=== PATIENT | male | born 1970 | race African-American/Black ===

== ENCOUNTER 2020-03-19 08:45 | Inpatient (IN) | payer MEDICAID, OTHER ==
[~2020-03-19] VITALS: Ht 175.3 cm; Wt 60.0 kg
[2020-03-19] VITALS (40 sets, daily range): BP systolic 53–132; BP diastolic 17–94
[~2020-03-19 08:45] MED LIST: INSU100I28 SQ; INSU100V3 SUBCUT
[2020-03-19] MEDS ORDERED: SODIUM CHLORIDE 0.9% 1,000 ML IV ONE ×2 (09:00→11:30)
[2020-03-19 09:43] LABS: HEMATOCRIT. 48.8 % (42.0-52.0); HEMOGLOBIN. 14.1 g/dL (14.0-18.0); MEAN PLATELET VOLUME 9.4 fl (7.4-10.4); PLATELET 548 x1000/uL (130-400); RED BLOOD CELL COUNT 4.39 mill/uL (4.7-6.1); RED CELL DISTRIBUTION WIDTH 14.7 % (11.6-14.6)
[2020-03-19 09:49] LABS: CHLORIDE 81 mEq/L (98-107)
[2020-03-19] MEDS ORDERED: INSULIN REGULAR (DRIP) 100 UNITS in SODIUM CHLORIDE 0.9% 99 ML IV SCH (10:15)
[2020-03-19] MEDS ORDERED: INSULIN REGULAR (HUMULIN R) 300UNITS/3ML VIAL IV ONE (10:15)
[2020-03-19 10:23] LABS: PLATELET ESTIMATE INCREASED
[2020-03-19] MEDS ORDERED: MAGNESIUM 2 G PREMIX 50 ML IV ONE (11:00)
[2020-03-19 11:25] LABS: CLARITY URINE CLEAR (CLEAR); COLOR URINE YELLOW (YELLOW); KETONES URINE 2+ (NEGATIVE); LEUKOCYTE ESTERASE URINE NEGATIVE (NEGATIVE); NITRITE URINE NEGATIVE (NEGATIVE); OCCULT BLOOD URINE 1+ (NEGATIVE); PROTEIN URINE 1+ (NEGATIVE); UROBILINOGEN URINE 0.2 E.U./dL (0.2-1.0)
[2020-03-19] MEDS ORDERED: ACETAMINOPHEN 325MG TABLET PO PRN (12:30)
[2020-03-19] MEDS ORDERED: IPRATROPIUM/ALBUTEROL 0.5-3(2.5)MG/3ML NEB NEB PRN (12:30)
[2020-03-19] MEDS ORDERED: CLONIDINE 0.1MG TABLET PO PRN (12:30)
[2020-03-19] MEDS ORDERED: GUAIFENESIN 200MG/10ML SUGAR FREE UDC PO PRN (12:30)
[2020-03-19] MEDS ORDERED: ONDANSETRON HCL 4MG/2ML INJ IV PRN (12:30)
[2020-03-19] MEDS ORDERED: DEXTROSE 50% WATER 50ML SYRINGE IV PRN ×2 (12:30)
[2020-03-19] MEDS ORDERED: MAGNESIUM/ALUMINUM HYDROXIDE/SIMETHICONE 30ML UDC PO PRN (12:30)
[2020-03-19] MEDS ORDERED: DOCUSATE SODIUM 100MG CAPSULE PO PRN (12:30)
[2020-03-19] MEDS: BLOOD SUGAR DIAGNOSTIC STRIP TEST SCH ×10 (12:50→23:08)
[2020-03-19] MEDS: ENOXAPARIN 30MG/0.3ML SYR SUBCUT SCH (13:37)
[2020-03-19] MEDS: SODIUM CHLORIDE 0.9% 1,000 ML IV SCH ×2 (13:37→18:31)
[2020-03-19] MEDS: INSULIN REGULAR (DRIP) 100 UNITS in SODIUM CHLORIDE 0.9% 100 ML IV SCH ×2 (15:07→18:28)
[2020-03-19 17:04] LABS: PHOSPHORUS 6.9 mg/dL (2.5-4.9)
[2020-03-19 19:00] LABS: TOTAL IRON BINDING CAPACITY 163 ug/dL (250-450)
[2020-03-19 19:03] LABS: *AMPHETAMINES SCREEN URINE NEGATIVE (NEGATIVE); *BARBITURATES SCREEN URINE NEGATIVE (NEGATIVE); *BENZODIAZEPINES SCREEN URINE NEGATIVE (NEGATIVE); *COCAINE SCREEN URINE NEGATIVE (NEGATIVE)
[2020-03-19 19:04] LABS: CANNABINOID URINE SCREEN NEGATIVE (NEGATIVE); METHADONE URINE SCREEN NEGATIVE (NEGATIVE); OPIATES URINE SCREEN NEGATIVE (NEGATIVE); PHENCYCLIDINE URINE SCREEN NEGATIVE (NEGATIVE)
[2020-03-19 19:26] LABS: FOLIC ACID (FOLATE) SERUM >20 ng/mL ng/mL (>5.38)
[2020-03-19 19:37] LABS: VITAMIN B12 SERUM 1912 pg/mL (211-911)
[2020-03-19] MEDS ORDERED: ZOLPIDEM TARTRATE 5MG TABLET PO PRN (21:00)
[2020-03-19] MEDS: DEXT 5%/0.9% NACL 1,000 ML IV SCH (22:36)
[2020-03-19 23:05] LABS: PHOSPHORUS 2.1 mg/dL (2.5-4.9)
[2020-03-20] VITALS (34 sets, daily range): BP systolic 118–152; BP diastolic 72–90
[2020-03-20] MEDS ORDERED: POTASSIUM PHOS,M-BASIC-D-BASIC 15 MMOL in DEXT 5% WATER 245 ML IV NR (01:00)
[2020-03-20] MEDS: BLOOD SUGAR DIAGNOSTIC STRIP TEST SCH ×9 (01:01→20:55)
[2020-03-20 04:33] LABS: BASOPHILS % 0.7 % (0.0-2.0); HEMATOCRIT. 38.9 % (42.0-52.0); HEMOGLOBIN. 13.5 g/dL (14.0-18.0); LYMPHOCYTES % 8.5 % (20.0-50.0); MEAN CORPUSCULAR HEMOGLOBIN 32.2 pg (28.0-32.0); MEAN CORPUSCULAR VOLUME 92.8 fL (80.0-94.0); MEAN PLATELET VOLUME 8.1 fl (7.4-10.4); MONOCYTES % 6.7 % (2.0-8.0); NEUTROPHILS % 84.1 % (40.0-76.0); PLATELET 427 x1000/uL (130-400); RED BLOOD CELL COUNT 4.19 mill/uL (4.7-6.1); RED CELL DISTRIBUTION WIDTH 12.9 % (11.6-14.6)
[2020-03-20 04:42] LABS: CHLORIDE 120 mEq/L (98-107)
[2020-03-20] MEDS: DEXT 5%/0.9% NACL 1,000 ML IV SCH (05:24)
[2020-03-20] MEDS: PANTOPRAZOLE SODIUM 40 MG/VIAL IV SCH (08:59)
[2020-03-20] MEDS ORDERED: DEXTROSE 50% WATER 50ML SYRINGE IV PRN (10:45)
[2020-03-20] MEDS: SODIUM CHLORIDE 0.45% 1,000 ML IV SCH ×3 (11:58→23:22)
[2020-03-20] MEDS ORDERED: POTASSIUM PHOS,M-BASIC-D-BASIC 15 MMOL in DEXT 5% WATER 250 ML IV SCH (12:00)
[2020-03-20] MEDS: INSULIN LISPRO 100 UNITS/ML SUBCUT SCH ×5 (12:00→20:55)
[2020-03-20] MEDS: INSULIN GLARGINE UD 100 UNITS/ML SYR SUBCUT SCH (12:00)
[2020-03-20] MEDS: ENOXAPARIN 30MG/0.3ML SYR SUBCUT SCH (12:00)
[2020-03-20] MEDS: KETOROLAC 30MG/ML VIAL IV PRN ×2 (17:48→23:25)
[2020-03-21] VITALS (22 sets, daily range): BP systolic 100–148; BP diastolic 70–93
[2020-03-21] MEDS: ACETAMINOPHEN 325MG TABLET PO PRN ×2 (01:18→09:06)
[2020-03-21 05:28] LABS: BASOPHILS % 0.2 % (0.0-2.0); EOSINOPHILS % 0.9 % (0.0-5.0); HEMATOCRIT. 34.1 % (42.0-52.0); HEMOGLOBIN. 11.7 g/dL (14.0-18.0); LYMPHOCYTES % 23.2 % (20.0-50.0); MEAN CORPUSCULAR HEMOGLOBIN 31.8 pg (28.0-32.0); MEAN PLATELET VOLUME 8.1 fl (7.4-10.4); MONOCYTES % 3.1 % (2.0-8.0); NEUTROPHILS % 72.6 % (40.0-76.0); PLATELET 277 x1000/uL (130-400); RED BLOOD CELL COUNT 3.67 mill/uL (4.7-6.1)
[2020-03-21 05:43] LABS: CHLORIDE 115 mEq/L (98-107)
[2020-03-21 05:48] LABS: PHOSPHORUS 1.7 mg/dL (2.5-4.9)
[2020-03-21] MEDS: KETOROLAC 30MG/ML VIAL IV PRN ×2 (05:53→21:56)
[2020-03-21] MEDS: INSULIN LISPRO 100 UNITS/ML SUBCUT SCH ×7 (05:54→21:00)
[2020-03-21] MEDS: BLOOD SUGAR DIAGNOSTIC STRIP TEST SCH ×4 (05:55→20:21)
[2020-03-21] MEDS: SODIUM CHLORIDE 0.45% 1,000 ML IV SCH ×2 (05:55→12:38)
[2020-03-21] MEDS ORDERED: POTASSIUM CHLORIDE 20MEQ/PACKET PO SCH (09:00)
[2020-03-21] MEDS: PANTOPRAZOLE SODIUM 40 MG/VIAL IV SCH (09:05)
[2020-03-21] MEDS: TAMSULOSIN HCL 0.4MG SR CAPSULE PO SCH ×2 (09:11→21:57)
[2020-03-21] MEDS ORDERED: POTASSIUM PHOS,M-BASIC-D-BASIC 30 MMOL in DEXT 5% WATER 500 ML IV SCH (11:00)
[2020-03-21] MEDS: CEFTRIAXONE 1,000 MG in DEXTROSE 5% WATER 50 ML IV SCH (11:31)
[2020-03-21] MEDS: INSULIN GLARGINE UD 100 UNITS/ML SYR SUBCUT SCH (11:44)
[2020-03-21] MEDS: ENOXAPARIN 30MG/0.3ML SYR SUBCUT SCH (12:38)
[2020-03-21] MEDS: DUTASTERIDE 0.5MG CAPSULE PO SCH (16:47)
[2020-03-22] VITALS: BP 125/70
[2020-03-22 04:00] VITALS: BP 126/75
[2020-03-22] MEDS: SODIUM CHLORIDE 0.45% 1,000 ML IV SCH ×4 (06:01→22:45)
[2020-03-22 06:22] LABS: BASOPHILS % 0.2 % (0.0-2.0); EOSINOPHILS % 3.2 % (0.0-5.0); HEMATOCRIT. 36.6 % (42.0-52.0); HEMOGLOBIN. 12.7 g/dL (14.0-18.0); LYMPHOCYTES % 56.4 % (20.0-50.0); MEAN CORPUSCULAR HEMOGLOBIN 32.2 pg (28.0-32.0); MEAN CORPUSCULAR VOLUME 92.6 fL (80.0-94.0); MEAN PLATELET VOLUME 7.8 fl (7.4-10.4); MONOCYTES % 6.1 % (2.0-8.0); NEUTROPHILS % 34.1 % (40.0-76.0); PLATELET 264 x1000/uL (130-400); RED BLOOD CELL COUNT 3.95 mill/uL (4.7-6.1); RED CELL DISTRIBUTION WIDTH 13.2 % (11.6-14.6)
[2020-03-22 06:42] LABS: CHLORIDE 115 mEq/L (98-107)
[2020-03-22 06:48] LABS: PHOSPHORUS 2.8 mg/dL (2.5-4.9)
[2020-03-22] MEDS: BLOOD SUGAR DIAGNOSTIC STRIP TEST SCH ×4 (07:20→20:21)
[2020-03-22] MEDS: INSULIN LISPRO 100 UNITS/ML SUBCUT SCH ×7 (07:50→20:21)
[2020-03-22 08:00] VITALS: BP 141/93
[2020-03-22] MEDS: CEFTRIAXONE 1,000 MG in DEXTROSE 5% WATER 50 ML IV SCH (09:12)
[2020-03-22] MEDS: TAMSULOSIN HCL 0.4MG SR CAPSULE PO SCH ×2 (09:13→20:33)
[2020-03-22] MEDS: FAMOTIDINE 20MG TABLET PO SCH (09:14)
[2020-03-22] MEDS: DUTASTERIDE 0.5MG CAPSULE PO SCH (09:14)
[2020-03-22] MEDS: ENOXAPARIN 40MG/0.4ML SYR SUBCUT SCH (09:15)
[2020-03-22] MEDS: INSULIN GLARGINE UD 100 UNITS/ML SYR SUBCUT SCH (10:21)
[2020-03-22 12:00] VITALS: BP 142/93
[2020-03-22 16:00] VITALS: BP 133/91
[2020-03-22 20:00] VITALS: BP 132/93
[2020-03-23] VITALS: BP 126/92
[2020-03-23 04:00] VITALS: BP 132/91
[2020-03-23] MEDS: SODIUM CHLORIDE 0.45% 1,000 ML IV SCH ×3 (05:25→21:45)
[2020-03-23] MEDS: INSULIN LISPRO 100 UNITS/ML SUBCUT SCH ×6 (07:20→21:00)
[2020-03-23] MEDS: BLOOD SUGAR DIAGNOSTIC STRIP TEST SCH ×4 (07:38→21:49)
[2020-03-23 08:00] VITALS: BP 138/94
[2020-03-23] MEDS: FAMOTIDINE 20MG TABLET PO SCH (09:25)
[2020-03-23] MEDS: DUTASTERIDE 0.5MG CAPSULE PO SCH (09:26)
[2020-03-23] MEDS: CEFTRIAXONE 1,000 MG in DEXTROSE 5% WATER 50 ML IV SCH (09:26)
[2020-03-23] MEDS: TAMSULOSIN HCL 0.4MG SR CAPSULE PO SCH ×2 (09:26→21:41)
[2020-03-23] MEDS: ENOXAPARIN 40MG/0.4ML SYR SUBCUT SCH (09:27)
[2020-03-23] MEDS: INSULIN GLARGINE UD 100 UNITS/ML SYR SUBCUT SCH (10:47)
[2020-03-23 12:00] VITALS: BP 132/89
[2020-03-23 16:00] VITALS: BP 123/85
[2020-03-23 20:00] VITALS: BP 126/88
[2020-03-23] MEDS: KETOROLAC 30MG/ML VIAL IV PRN (21:42)
[2020-03-24] VITALS: BP 133/87
[2020-03-24 04:00] VITALS: BP 136/85
[2020-03-24] MEDS: INSULIN LISPRO 100 UNITS/ML SUBCUT SCH ×4 (07:20→12:20)
[2020-03-24 08:00] VITALS: BP 132/87
[2020-03-24] MEDS: BLOOD SUGAR DIAGNOSTIC STRIP TEST SCH ×2 (08:04→11:24)
[2020-03-24] MEDS: FAMOTIDINE 20MG TABLET PO SCH (09:43)
[2020-03-24] MEDS: TAMSULOSIN HCL 0.4MG SR CAPSULE PO SCH (09:43)
[2020-03-24] MEDS: CEFTRIAXONE 1,000 MG in DEXTROSE 5% WATER 50 ML IV SCH (09:43)
[2020-03-24] MEDS: ENOXAPARIN 40MG/0.4ML SYR SUBCUT SCH (09:44)
[2020-03-24] MEDS: SODIUM CHLORIDE 0.45% 1,000 ML IV SCH (09:49)
[2020-03-24] MEDS: DUTASTERIDE 0.5MG CAPSULE PO SCH (09:49)
[2020-03-24] MEDS: INSULIN GLARGINE UD 100 UNITS/ML SYR SUBCUT SCH (10:00)
[2020-03-24 12:00] VITALS: BP 130/83
[2020-03-24 16:00] VITALS: BP 124/83
== END 2020-03-24 17:40 | disposition home or self-care (01) | DRG 420 ==
LOC: ER 08:45 → MICUNO 10:35 → ENRESERV 11:17 → 6EST 03-21 10:26
PROVIDERS: ADMIT Internal Medicine; ATTEND Internal Medicine
DX: E11.10 Type 2 diabetes mellitus with ketoacidosis without coma (principal); N17.0 Acute kidney failure with tubular necrosis; G92 Toxic encephalopathy; E11.00 Type 2 diabetes mellitus with hyperosmolarity without nonketotic hyperglycemic-hyperosmolar coma (NKHHC); E44.0 Moderate protein-calorie malnutrition; E87.5 Hyperkalemia; E78.00 Pure hypercholesterolemia, unspecified; N13.8 Other obstructive and reflux uropathy; N40.1 Benign prostatic hyperplasia with lower urinary tract symptoms; R56.9 Unspecified convulsions; D63.8 Anemia in other chronic diseases classified elsewhere; E83.39 Other disorders of phosphorus metabolism; F12.10 Cannabis abuse, uncomplicated; Z79.4 Long term (current) use of insulin; Z79.899 Other long term (current) drug therapy; Z68.1 Body mass index [BMI] 19.9 or less, adult; Z91.14 Patient's other noncompliance with medication regimen
CPT/HCPCS: 36415; 80048; 80053; 80305; 81003; 82607; 82746; 82962; 83540; 83550; 83735; 84100; 85025; 87077; 87186; 93005; 93970; 99291; C9113; J0696; J1650; J1815; J1885; J3475; J3490; J7030; J7042; J7050; J7060; A4315